=== PATIENT | male | born 1990 | race Caucasian/White ===

== ENCOUNTER 2018-01-05 02:48 | Emergency (ER) | payer SELFPAY ==
[~2018-01-05] VITALS: Ht 175.3 cm; Wt 65.9 kg
[~2018-01-05 02:48] MED LIST: POLY3.5O LEFT EYE; Z.0.NO CURRENT MEDS
[2018-01-05 02:51] VITALS: BP 144/84; PULSE 81; RESP 18; TEMP 97.4; O2SAT 100
--- NOTE | 2018-01-05 03:31 | PD ---
HPI Chief Complaint: Cold / Flu Symptoms Time Seen by Provider: 03:27 Travel History International Travel<30 days: No Contact w/Intl Traveler<30days: No Traveled to known affect area: No History of Present Illness HPI 27-year-old male who presents with multiple myriad of somatic complaints. Patient states that the reason is that is because he feels congestion in his nasal area. He is worried that he may have acid reflux as well. Patient also says that occasionally he will get tingling of his hands and feet. The patient appears to be extremely anxious. I informed patient that this time that we will evaluate his nasal congestion and will refer him to a primary doctor for further evaluation for his other issues that he has had on and off for several years. The patient is amenable to this. [facility] Past Medical History Medical History: Denies Significant Hx Diminished Hearing: No Immunizations Current: No Tetanus Vaccination: Never Vaccinated Influenza Vaccination: No ?: Not Past Surgical History Surgical History: No Previous Surgery Social History Alcohol Use: Yes Tobacco Use: No (quit 4 yrs ago) Substance Use: No Allergies-Medications (Allergen,Severity, Reaction): Coded Allergies: diphenhydramine (Unverified Allergy, Severe, CHILDHOOD RXN, 01/05/18) Uncoded Allergies: CATS (Allergy, Severe, HIVES, 08/12/11) Reported Meds & Prescriptions Reported Meds & Active Scripts Active Polysporin (Bacitracin/Polymyxin B Sulfate) 3.5 Gm Oint 1 Dose LEFT EYE QID 7 Days Reported No Current Meds (Miscellaneous Medication) [facility] Review of Systems Eyes: No: Diploplia, Blurred Vision HENT: Positive: Other (Postnasal drip), No: Headaches, Lightheadedness, Sore Throat Cardiovascular: No: Chest Pain or Discomfort, Palpitations Respiratory: Positive: Shortness of Breath (States when he lays in different positions on the couch sometimes he feels as though he does not take a deep breath. He denies any true shortness of breath.), No: Cough Gastrointestinal: No: Nausea, Vomiting, Abdominal Pain Musculoskeletal: No: Weakness, Pain Skin: No Rash, No Dryness, No Lesions Neurologic: No: Weakness, Dizziness, Headache Physical Exam Narrative GENERAL: Well-nourished, well-developed patient, in no acute respiratory distress.. SKIN: Focused skin assessment warm/dry. ENT: Mucosa pink and moist. On examination the patient's posterior pharynx, there is slight erythema in the posterior pharynx appears in the back of his throat. This is consistent with postnasal drip. There is no exudate. There is no uvular abnormalities. There is no tenderness to his sinuses bilaterally. NECK: Supple, trachea midline. No JVD or lymphadenopathy. CARDIOVASCULAR: Regular rate and rhythm without murmurs, gallops, or rubs. RESPIRATORY: Breath sounds equal bilaterally. No accessory muscle use. GASTROINTESTINAL: Abdomen soft, non-tender, nondistended. MUSCULOSKELETAL: No cyanosis, or edema. NEUROLOGICAL: Awake and alert. Cranial nerves II through XII intact. Motor and sensory grossly within normal limits. Five out of 5 muscle strength in all muscle groups. Normal speech. Data Data Last Documented VS Vital Signs Date Time Temp Pulse Resp B/P (MAP) Pulse Ox O2 Delivery O2 Flow Rate FiO2 01/05/18 03:07 16 98 Room Air 01/05/18 02:51 97.4 81 144/84 (104) MDM Medical Decision Making Medical Screen Exam Complete: Yes Emergency Medical Condition: Yes Differential Diagnosis Postnasal drip versus sinusitis versus pharyngitis Narrative Course 27-year-old male presents with multiple vague somatic complaints. The patient states he is mainly there for postnasal drip. Patient does have postnasal drip on exam. He is not toxic. He is not febrile. I have informed him that he likely does have postnasal drip and should use [id number] Zyrtec. I have also informed him that I will give him the name and number of the [facility]. This way he can be seen and evaluated on a regular basis with the physician who knows him and can address his issues on a continuity basis. Diagnosis Primary Impression: Postnasal drip Referrals: [facility] Additional Instructions: Versus [id number] Zyrtec intake daily for your postnasal drip. Follow-up with the [facility]. Make an appointment so that he can be seen on a regular basis. Disposition: 01 DISCHARGE HOME Condition: Stable Kiran Eugene MD Jan 05, 2018 03:31
== END 2018-01-05 03:48 | disposition home or self-care (01) ==
LOC: PHED 02:48
DX: R09.82 Postnasal drip (principal)
CPT/HCPCS: 99282